=== PATIENT | female | born 1985 | race Caucasian/White ===

== ENCOUNTER 2019-07-03 18:55 | Inpatient (IN) | payer BC ==
[~2019-07-03] VITALS: Ht 172.7 cm; Wt 108.9 kg
[2019-07-03 19:00] VITALS: BP_SYST 110
[2019-07-03] MEDS ORDERED: NACL 0.9% 1,000 ML IV ONE (19:00)
[2019-07-03] MEDS ORDERED: ACETAMINOPHEN 500 MG TABLET PO ONE (19:00)
[2019-07-03] MEDS ORDERED: METOCLOPRAMIDE HCL 10 MG/2 ML VIAL IVP ONE (19:00)
[2019-07-03 19:33] LABS: BASOPHILS % (AUTO) 0.3 % (0.0-2.0); EOSINOPHILS # (AUTO) 0.1 K/uL (0.0-0.4); HEMATOCRIT 37.7 % (36-48); HEMOGLOBIN 12.8 g/dL (12.0-16.0); LYMPHOCYTES # (AUTO) 2.3 K/uL (1.0-5.5); LYMPHOCYTES % (AUTO) 27.2 % (20.5-51.5); MEAN CORPUSCULAR HEMOGLOBIN 28 pg (27-31); MEAN CORPUSCULAR HGB CONC 34 % (32-36); MEAN CORPUSCULAR VOLUME 83 fL (79.0-98.0); MONOCYTES # (AUTO) 0.5 K/uL (0.0-1.0); MONOCYTES % (AUTO) 6.4 % (1.7-9.3); NEUTROPHILS # (AUTO) 5.5 K/uL (1.8-7.7); NEUTROPHILS % (AUTO) 65.1 % (40.0-70.0); PLATELET COUNT (AUTO) 163 K/uL (130-430); RED BLOOD CELL COUNT(AUTO) 4.54 MIL/uL (4.2-6.2); RED CELL DISTRIBUTION WIDTH 16.3 % (9.0-15.0); WHITE BLOOD COUNT (AUTO) 8.5 K/uL (4.8-10.8)
[2019-07-03 19:35] VITALS: BP_SYST 110
[2019-07-03] MEDS ORDERED: TERBUTALINE SULFATE 1 MG/ML VIAL SUBCUT ONE ×2 (19:38→23:00)
[2019-07-03 19:39] LABS: CALCIUM 8.8 mg/dL (8.4-11.0); CREATININE 0.41 mg/dL (0.55-1.30); POTASSIUM 3.8 mmol/L (3.5-5.1)
[2019-07-03 19:43] LABS: INR 0.9 (0.8-1.2); PROTHROMBIN TIME 9.2 SECS (9.5-12.5)
[2019-07-03] MEDS: LR 1,000 ML IV SCH (19:45)
[2019-07-03 20:06] LABS: ALBUMIN 2.9 g/dL (3.4-4.8); TOTAL BILIRUBIN 0.3 mg/dL (0.0-1.0)
[2019-07-03] MEDS: TERBUTALINE SULFATE 1 MG/ML VIAL SUBCUT PRN ×2 (20:39→23:50)
[2019-07-03] MEDS: MORPHINE SULFATE 10 MG/ML VIAL IM PRN (23:44)
[2019-07-04] MEDS: NIFEdipine (O.B. USE ONLY) 10 MG CAPSULE PO SCH ×4 (00:50→01:53)
[2019-07-04] MEDS ORDERED: NIFEdipine (O.B. USE ONLY) 10 MG CAPSULE PO ONE ×2 (00:59→01:53)
[2019-07-04] MEDS: LR 1,000 ML IV SCH ×2 (04:47→22:50)
[2019-07-04] MEDS ORDERED: NIFEdipine (O.B. USE ONLY) 10 MG CAPSULE PO SCH (07:00)
[2019-07-04] MEDS ORDERED: ACETAMINOPHEN 325 MG TABLET PO PRN (11:30)
[2019-07-04] MEDS ORDERED: AMPICILLIN SODIUM 2 GM in NS 100 ML IV ONE (16:30)
[2019-07-04] MEDS: AMPICILLIN SODIUM 1 GM in NS 50 ML IV SCH (22:52)
[2019-07-05 07:39] LABS: BASOPHILS % (AUTO) 0.3 % (0.0-2.0); EOSINOPHILS % (AUTO) 0.4 % (0.0-4.0); HEMATOCRIT 32.5 % (36-48); HEMOGLOBIN 11.2 g/dL (12.0-16.0); LYMPHOCYTES # (AUTO) 1.4 K/uL (1.0-5.5); LYMPHOCYTES % (AUTO) 14.4 % (20.5-51.5); MEAN CORPUSCULAR HEMOGLOBIN 29 pg (27-31); MEAN CORPUSCULAR HGB CONC 34 % (32-36); MEAN CORPUSCULAR VOLUME 83 fL (79.0-98.0); MONOCYTES # (AUTO) 0.5 K/uL (0.0-1.0); MONOCYTES % (AUTO) 5.5 % (1.7-9.3); NEUTROPHILS # (AUTO) 7.5 K/uL (1.8-7.7); NEUTROPHILS % (AUTO) 79.4 % (40.0-70.0); PLATELET COUNT (AUTO) 128 K/uL (130-430); RED CELL DISTRIBUTION WIDTH 16.3 % (9.0-15.0); WHITE BLOOD COUNT (AUTO) 9.4 K/uL (4.8-10.8)
[2019-07-05] MEDS ORDERED: MORPHINE SULFATE 10 MG/ML VIAL IVP PRN (09:30)
[2019-07-05] MEDS ORDERED: MISOPROSTOL 100 MCG TABLET (CYTOTEC) VG SCH (09:30)
[2019-07-05] MEDS ORDERED: chlorproMAZINE HCL 50 MG/ 2 ML AMP IM ONE (09:30)
[2019-07-05] MEDS: AMPICILLIN SODIUM 1 GM in NS 50 ML IV SCH ×3 (11:15→22:51)
[2019-07-05] MEDS: MISOPROSTOL 100 MCG TABLET (CYTOTEC) VG SCH ×2 (14:00→18:30)
[2019-07-05] MEDS: MORPHINE SULFATE 10 MG/ML VIAL IM PRN (15:04)
[2019-07-05] MEDS: LR 1,000 ML IV SCH (22:52)
[2019-07-06] MEDS: MISOPROSTOL 100 MCG TABLET (CYTOTEC) VG SCH ×2 (00:35→06:53)
[2019-07-06] MEDS: AMPICILLIN SODIUM 1 GM in NS 50 ML IV SCH (05:02)
[2019-07-06] MEDS ORDERED: MISOPROSTOL 100 MCG TABLET (CYTOTEC) VG SCH (10:00)
[2019-07-06] MEDS: MISOPROSTOL 100 MCG TABLET (CYTOTEC) PO SCH ×2 (14:45→18:35)
[2019-07-06] MEDS ORDERED: ONDANSETRON HCL 4 MG/2 ML VIAL IVP PRN (20:00)
[2019-07-06] MEDS: HYDROmorphone 2 MG/ML VIAL IVP PRN ×3 (20:15→22:20)
[2019-07-06] MEDS ORDERED: TEMAZEPAM 15 MG CAPSULE PO PRN (21:00)
[2019-07-06] MEDS ORDERED: OXYTOCIN/0.9 % SODIUM CHLORIDE 1,000 ML IV ONE ×2 (21:35→22:10)
[2019-07-06] MEDS ORDERED: OXYTOCIN/0.9 % SODIUM CHLORIDE 1,000 ML IV SCH (22:10)
[2019-07-06] MEDS ORDERED: HYDROcodone/ACETAMIN 5-325 MG TAB (NORCO/ VICODIN) PO PRN (22:15)
[2019-07-06] MEDS ORDERED: SENNOSIDES/DOCUSATE SODIUM 1 TAB TABLET(SENOKOT-S) PO PRN (22:15)
[2019-07-07] MEDS: IBUPROFEN 600 MG TABLET PO SCH ×2 (06:00)
[2019-07-07 07:10] LABS: BASOPHILS % (AUTO) 0.2 % (0.0-2.0); EOSINOPHILS % (AUTO) 0.5 % (0.0-4.0); HEMATOCRIT 29.5 % (36-48); HEMOGLOBIN 10.3 g/dL (12.0-16.0); LYMPHOCYTES # (AUTO) 1.6 K/uL (1.0-5.5); LYMPHOCYTES % (AUTO) 17.7 % (20.5-51.5); MEAN CORPUSCULAR HEMOGLOBIN 29 pg (27-31); MEAN CORPUSCULAR HGB CONC 35 % (32-36); MEAN CORPUSCULAR VOLUME 84 fL (79.0-98.0); MONOCYTES # (AUTO) 0.4 K/uL (0.0-1.0); MONOCYTES % (AUTO) 4.2 % (1.7-9.3); NEUTROPHILS % (AUTO) 77.4 % (40.0-70.0); PLATELET COUNT (AUTO) 149 K/uL (130-430); RED BLOOD CELL COUNT(AUTO) 3.51 MIL/uL (4.2-6.2); RED CELL DISTRIBUTION WIDTH 15.8 % (9.0-15.0)
== END 2019-07-07 10:10 | disposition home or self-care (01) | DRG 779 ==
LOC: SED 18:55 → SPU 19:33 → OBSVTOIN 07-04 16:37
PROVIDERS: ADMIT Specialist; ATTEND Specialist
PROC: 3E0P7VZ Introduction of Hormone into Female Reproductive, Via Natural or Artificial Opening (ICD-10-PCS; principal; 2019-07-06)
DX: O02.1 Missed abortion (principal); O42.912 Preterm premature rupture of membranes, unspecified as to length of time between rupture and onset of labor, second trimester; Z37.9 Outcome of delivery, unspecified; Z3A.19 19 weeks gestation of pregnancy
CPT/HCPCS: 36415; 59899; 76805-TC; 76815; 76856-TC; 80053; 84702-TC; 85025; 85610-TC; 86592; 86886; 86900; 86901; 88307; 96361; 96374; 99285; A4618; G0378; J0290; J1170; J2270; J2405; J2590; J2765; J3105; J7120